=== PATIENT | male | born 1950 | race Caucasian/White ===

== ENCOUNTER 2018-08-07 11:40 | Outpatient (RCR) | payer MEDICARE, OTHER, SELFPAY | END 2018-08-08 11:53 | LOC: PHYS 11:40 | PROVIDERS: Family Provider Family Medicine; PCP Family Medicine; Visit Provider Family Medicine | DX: G56.03 Carpal tunnel syndrome, bilateral upper limbs (principal); M25.531 Pain in right wrist; M25.532 Pain in left wrist; R20.2 Paresthesia of skin | CPT/HCPCS: 95909 ==

== ENCOUNTER → 2018-12-22 07:11 | Outpatient (CLI) | payer MEDICARE, OTHER, SELFPAY ==
[2018-12-22 08:14] LABS: Add Manual Diff / Slide Review NO; Basophils Absolute Auto 100 /uL (0-100); Basophils Percent Auto 1.5 % (0-2); Eosinophils Absolute Auto 100 /uL (0-450); Hematocrit 41.6 % (41-53); Lymphocytes Absolute Auto 1700 /uL (1100-4500); Lymphocytes Percent Auto 29.4 % (25-40); Mean Corpuscular HGB Conc 33.7 % (30-36); Mean Corpuscular Hemoglobin 30.4 PG (26-34); Mean Corpuscular Volume 90.3 fL (80-100); Monocytes Absolute Auto 500 /uL (0-900); Monocytes Percent Auto 8.4 % (3-14); Neutrophils Absolute Auto 3400 /uL (1500-7000); Neutrophils Percent Auto 58.7 % (50-75); Platelet Count 260 X10^3/uL (150-400); Red Cell Distribution Width 13.2 % (11.6-14.8); White Blood Cell Count 5.8 X10^3/uL (4.5-11.0)
[2018-12-22 08:48] LABS: Alanine Aminotransferase 26 IU/L (21-72); Albumin 4.4 g/dL (3.5-5.0); Albumin Globulin Ratio 1.6 (1.0-2.8); Alkaline Phosphatase 41 U/L (38-126); Aspartate Aminotransferase 30 IU/L (17-59); BUN Creatinine Ratio 19.4 (6-22); Bilirubin Total 0.4 mg/dL (0.2-1.3); Blood Urea Nitrogen 33 mg/dL (9-20); Calcium 9.6 mg/dL (8.4-10.2); Carbon Dioxide 29 mmol/L (22-32); Chloride 101 mmol/L (98-107); Globulin 2.7 g/dL (1.7-4.1); Glucose 180 mg/dL (80-110); HEMOLYSIS < 15 (0-50); Sodium 137 mmol/L (137-145); Total Protein 7.1 g/dL (6.3-8.2)
[2018-12-22 08:49] LABS: Hemoglobin A1C% w Est Avg Glu 8.6 % (4.0-6.0)
[2018-12-22 09:14] LABS: Thyroid Stimulating Hormone 4.29 uIU/mL (0.47-4.68)
[2018-12-22 09:58] LABS: Prostate Specific Antigen Scrn < 0.064 ng/mL (0.1-4.0)
== END ==
PROVIDERS: PCP Family Medicine; Visit Provider Family Medicine
DX: E10.9 Type 1 diabetes mellitus without complications (principal); E78.1 Pure hyperglyceridemia; N18.2 Chronic kidney disease, stage 2 (mild); N52.31 Erectile dysfunction following radical prostatectomy
CPT/HCPCS: 36415; 80053; 83036; 84403; 84443; 85025; G0103

== ENCOUNTER → 2019-06-15 07:56 | Outpatient (CLI) | payer MEDICARE, OTHER, SELFPAY ==
[2019-06-15 12:57] LABS: BUN Creatinine Ratio 19.5 (6-22); Blood Urea Nitrogen 37 mg/dL (9-20); Calcium 9.5 mg/dL (8.4-10.2); Carbon Dioxide 27 mmol/L (22-32); Chloride 101 mmol/L (98-107); Cholesterol 203 mg/dL (140-199); Estimated Glomerular Filt Rate 35.2 mL/min (>60); Glucose 241 mg/dL (80-110); HDL Cholesterol 30 mg/dL (40-60); HEMOLYSIS 16 (0-50); LDL Cholesterol Calculated 97 mg/dL (<100); Potassium 5.3 mmol/L (3.4-5.1); Sodium 138 mmol/L (137-145); Triglycerides 379 mg/dL (35-150)
== END ==
PROVIDERS: PCP Family Medicine; Visit Provider Family Medicine
DX: E10.9 Type 1 diabetes mellitus without complications (principal)
CPT/HCPCS: 36415; 80048; 80061; 83036

== ENCOUNTER → 2019-07-15 10:22 | Outpatient (CLI) | payer MEDICARE, OTHER, SELFPAY ==
--- NOTE | 2019-07-15 12:10 | DIET.PN ---
Dietary Note DIABETES w/ CKD Nutrition Initial Assessment:? ASSESS:?? Mr Ferrari is a 68 yom w/ long standing hx (45 yrs) of Type 1 diabetes with a new DX of CKD stage 3. He presents today with his who is very concerned and eager to make any changes necessary. He states he was previously under the care of Dr. Santizo (etcher electrolytic [facility]) who states he has insulin dependent T2DM. He has an appt with Dr. Durant (nephrology) and Dr. Dent (endocrinology) next month. He is currently taking lantus am/pm and humalog SSI. He states he generally takes 6-10 units of meal time insulin (depending on correction factor) before or after his meal, but does not account for carbs to be consumed. He states he generally has elevated FBG >200, but often has ranges between 100-130 in the afternoon. During this assessment his blood sugar began to drop reaching 80 mg/dl which appeared symptomatic for this patient. Recommended pt get a snack from the cafeteria which he returns with an orange juice. He admits he is concerned with dietary changes, specifically protein limitations, but is aware of the seriousness of his diagnosis. He currently consumes several cups of coffee throughout the day and drinks 2 glasses of wine each night. He complains of chronic fatigue. ??? LABS: Per pt report:? (06/15/19) A1c: 9.0 H eGFR: 35.2 L K: 5.3 H Na: 138 Cr: 1.9 H Chol: 203 T LDL: 97 HDL: 30 ? MEDS:??lantus: 15 u a.m. 16 u p.m. novolog: SSI 6-10 u ? DIET: Per 24-hour recall:? B: 2 eggs, ham, oatmeal L: varies D: chicken, starch, veg ? Weight: 200 lb Height: 72 in BMI: 27 ? Exercise:? n/a NUTRITION DX 1. Altered Nutrition related labs related to impaired glucose metabolism, lack of previous exposure to accurate nutrition information as evidenced by pt report, dx of diabetes, CKD stage 3, previous diet high in refined carbohydrates.? EER: 2200 michael, 60-70 g pro, 2000 mg Na, 2000 mg K INTERVENTION(s): 1. Discussed pathophysiology of diabetes. Reviewed A1c and its correlation to blood glucose numbers. Discussed recommended BG ranges. 2. Discussed importance of self-monitoring, how often, and when to check. Recommend pt check before and 2 hr PP meals to discuss changes to SSI. Discussed importance of CHO counting in assessing insulin needs. 3. Reviewed hyper/hypoglycemia and treatment. Discussed the rule of 15 and specifically instructed on when to choose simple sugar ( <70) vs when to get a regular snack. Advised against orange juice as this is high in potassium. 4. Discussed impact of nutrition/diet on blood sugar control.? Discussed fed versus non-fed state.?? 5. Discussed the effect of carbohydrates/protein/fat on blood sugar control.? Stressed importance of consistent carbohydrate intake at each meal and provided instructions for recommended servings/portions of carbohydrates/protein per meal. Provided pt with educational material. 6. Reviewed carbohydrate counting and measuring carbohydrate content via serving sizes and reading nutrition labels.? Provided handouts.?? 7. Discussed the stages of kidney disease and the effects of protein, potassium, and sodium on blood pressure and kidney function. 8. Provided detailed outline of patient nutrient needs including specific protein, potassium, sodium and fluid goals. Provided list of low, med, and high potassium foods as well of servings of animal vs plant based proteins. 9. Stressed importance of meal timing and not going >4-5 hours between meals. 10. Discussed the effects of caffeine and alcohol on kidney function. 11. Discussed healthy weight loss, BG and BP control through diet and exercise to increase lean muscle mass.? MONITOR/EVALUATE: Anticipate good compliance.? Pt will call to schedule follow up.
== END ==
PROVIDERS: PCP Family Medicine; Visit Provider Family Medicine
DX: E10.22 Type 1 diabetes mellitus with diabetic chronic kidney disease (principal); N18.3 Chronic kidney disease, stage 3 (moderate); Z79.4 Long term (current) use of insulin; Z71.3 Dietary counseling and surveillance; Z68.27 Body mass index [BMI] 27.0-27.9, adult
CPT/HCPCS: 97802

== ENCOUNTER → 2019-08-06 13:56 | Outpatient (CLI) | payer MEDICARE, OTHER, SELFPAY ==
[2019-08-06 15:36] LABS: Creatinine Urine Random 110.3 mg/dL
[2019-08-06 15:37] LABS: Albumin 3.9 g/dL (3.5-5.0); BUN Creatinine Ratio 16.9 (6-22); Blood Urea Nitrogen 22 mg/dL (9-20); Calcium 9.2 mg/dL (8.4-10.2); Carbon Dioxide 29 mmol/L (22-32); Chloride 99 mmol/L (98-107); Estimated Glomerular Filt Rate 54.6 mL/min (>60); Glucose 224 mg/dL (80-110); HEMOLYSIS < 15 (0-50); Potassium 4.7 mmol/L (3.4-5.1); Sodium 136 mmol/L (137-145)
[2019-08-06 16:36] LABS: Microalbumi Creatinin Ratio Ur 591.1 ug/mg CR (<30); Microalbumin Urine Random 65.2 mg/dL (0-1.6)
== END ==
PROVIDERS: PCP Family Medicine; Visit Provider Family Medicine
DX: R80.9 Proteinuria, unspecified (principal); N52.31 Erectile dysfunction following radical prostatectomy
CPT/HCPCS: 36415; 80069; 82043; 82570; 84403

== ENCOUNTER → 2019-09-02 09:51 | Outpatient (CLI) | payer MEDICARE, OTHER, SELFPAY ==
--- NOTE | 2019-09-02 | DI.US.S_ITS ---
PROCEDURE: US RENAL COMPLETE INDICATIONS: CKD STAGE 3 TECHNIQUE: Real-time scanning was performed of the kidneys and bladder, with image documentation. COMPARISON: None. FINDINGS: Kidneys: Kidneys are normal in size. Right kidney measures 10.5 cm long; left kidney measures 11.9 cm long. Right renal cortical thickness is 1.6 cm; left renal cortical thickness is 1.4 cm. Renal cortical echotexture is normal. No hydronephrosis or nephrolithiasis. There is a lobulated 2.3 x 2.3 x 2.1 cm left mid kidney medial masslike structure, inadequately visualized by ultrasound.. Bladder: Pre-void bladder volume is 128 mL. Post-void residual is 0 mL. Pre-void images demonstrate no intraluminal masses or stones. On pre-void images, right but not the left ureteral jets are noted with color Doppler interrogation. (Of note, ureteral jets may not be detectable in up to 25% of cases due to insufficient differences in specific gravity between ureteral and bladder urine). Miscellaneous: No free pelvic fluid. IMPRESSION: At the left kidney middle third medially positioned is a 2.3 cm masslike structure that is not fully evaluated by ultrasound for determining whether this could represent an underlying neoplasm. Therefore this structure should be followed by sequential ultrasound to confirm stability of appearance over time, versus performing without and with contrast CT or MR scanning for more accurate characterization. Urology consultation is anticipated. Dictated by: Richard Graves M.D. on 09/02/2019 at 11:04 Approved by: Richard Graves M.D. on 09/02/2019 at 11:30
== END ==
PROVIDERS: PCP Family Medicine; Visit Provider Internal Medicine Nephrology
DX: N18.3 Chronic kidney disease, stage 3 (moderate) (principal)
CPT/HCPCS: 76770

== ENCOUNTER → 2019-09-24 09:02 | Outpatient (CLI) | payer MEDICARE, OTHER, SELFPAY ==
--- NOTE | 2019-09-24 | DI.MRI.S_ITS ---
PROCEDURE: MR ABDOMEN WO/W CON INDICATIONS: Abnormal radiologic findings on diagnostic imaging TECHNIQUE: Coronal HASTE through abdomen and pelvis; axial 2D FLASH in- and [id number] (with and without fat saturation), and breath-hold T2 FSE from the hepatic dome to the bottom of the kidneys. Coronal HASTE MR urogram of kidneys and bladder. Dynamic coronal VIBE during IV gadolinium administration; postgadolinium axial VIBE or 2D FLASH with fat saturation from the hepatic dome through the kidneys. COMPARISON: [facility], , RENAL COMPLETE, 09/02/2019, 10:08. FINDINGS: Image quality: Excellent. Genitourinary system: The kidneys are normal in size and cortical thickness. No cyst or solid mass. No hydronephrosis. There is normal and symmetric uptake and excretion of IV contrast. No restricted diffusion. No perinephric fluid or inflammation. Other solid organs: The liver is normal in size, contour, and signal subcentimeter cyst in the left hepatic lobe. No other liver mass. The biliary system is nondilated. The gallbladder is normal without stones. The pancreas is mildly atrophic. The pancreatic duct is normal caliber demonstrating classic ductal anatomy. No adrenal nodules. Normal spleen. Splenule anterior to the hilum. Nodes and vessels: Abdominal aorta and inferior vena cava are normal caliber. Moderate atheromatous change of the aorta. No retroperitoneal or visible mesenteric adenopathy. Bowel and peritoneum: The stomach and small bowel loops have a normal MR appearance. Lung bases: No basilar effusions. Normal heart size. Bones and soft tissues: Normal signal of the osseous structures. Tiny fat containing umbilical hernia. IMPRESSION: 1. Normal renal morphology bilaterally. Sonographic appearance of the mass is created by image plane obliquity to the normal cortex. 2. Aortic atherosclerosis. Dictated by: Anu Landaverde M.D. on 09/24/2019 at 12:05 Approved by: Anu Landaverde M.D. on 09/24/2019 at 12:16
== END ==
PROVIDERS: PCP Family Medicine; Visit Provider Internal Medicine Nephrology
DX: R93.429 Abnormal radiologic findings on diagnostic imaging of unspecified kidney (principal); I70.0 Atherosclerosis of aorta
CPT/HCPCS: 74183

== ENCOUNTER → 2019-11-06 08:57 | Outpatient (CLI) | payer MEDICARE, OTHER, SELFPAY ==
[2019-11-06 09:40] LABS: Bacteria Urine None Seen; RBC Urine None Seen (0-5/HPF); WBC Urine None Seen (0-5/HPF)
[2019-11-06 10:28] LABS: Protein (Total) Urine Random 39 mg/dL (0-12); Protein Creatinine Ratio Urine 0.33 GRAM/24H
[2019-11-06 10:28] LABS: Appearance Urine UA CLEAR; Bilirubin Urine UA NEGATIVE (NEGATIVE); Color Urine UA YELLOW; Glucose Urine UA 2+ g/dL (Negative); Ketones Urine UA NEGATIVE (NEGATIVE); Leukocyte Esterase Urine UA NEGATIVE (NEGATIVE); Nitrite Urine UA NEGATIVE (Negative); Occult Blood Urine UA NEGATIVE (Negative); Protein Urine UA TRACE (Negative); Urobilinogen Urine UA 0.2 E.U./dL (0.2); pH Urine UA 6.5 (4.5-8.0)
[2019-11-06 10:29] LABS: Culture Indicated Urine Cult Not Indicated; Urine Comments Microscopic Normal
[2019-11-06 10:43] LABS: Albumin 4.2 g/dL (3.5-5.0); BUN Creatinine Ratio 13.5 (6-22); Blood Urea Nitrogen 25 mg/dL (9-20); Calcium 9.4 mg/dL (8.4-10.2); Carbon Dioxide 27 mmol/L (22-32); Chloride 102 mmol/L (98-107); Estimated Glomerular Filt Rate 36.2 mL/min (>60); Glucose 173 mg/dL (80-110); HEMOLYSIS < 15 (0-50); Phosphorous 3.8 mg/dL (2.3-3.7); Potassium 4.7 mmol/L (3.4-5.1); Sodium 137 mmol/L (137-145); Triglycerides 214 mg/dL (35-150)
[2019-11-07 08:09] LABS: Parathyroid Hormone Int 46 pg/mL (15-65)
== END ==
PROVIDERS: PCP Family Medicine; Referring Provider Internal Medicine Nephrology; Visit Provider Internal Medicine Nephrology
DX: E78.1 Pure hyperglyceridemia (principal)
CPT/HCPCS: 36415; 80069; 81001; 82570; 83970; 84156; 84478

== ENCOUNTER → 2020-02-09 12:43 | Outpatient (CLI) | payer MEDICARE, OTHER, SELFPAY ==
[2020-02-09 15:39] LABS: Albumin 4.3 g/dL (3.5-5.0); BUN Creatinine Ratio 21.2 (6-22); Blood Urea Nitrogen 35 mg/dL (9-20); Calcium 9.8 mg/dL (8.4-10.2); Carbon Dioxide 26 mmol/L (22-32); Chloride 104 mmol/L (98-107); Estimated Glomerular Filt Rate 41.3 mL/min (>60); Glucose 154 mg/dL (80-110); HEMOLYSIS < 15 (0-50); Phosphorous 4.3 mg/dL (2.3-3.7); Potassium 4.7 mmol/L (3.4-5.1); Sodium 136 mmol/L (137-145)
== END ==
PROVIDERS: PCP Family Medicine; Referring Provider Internal Medicine Nephrology; Visit Provider Internal Medicine Nephrology
DX: N18.3 Chronic kidney disease, stage 3 (moderate) (principal)
CPT/HCPCS: 36415; 80069

== ENCOUNTER → 2020-02-22 15:17 | Outpatient (CLI) | payer MEDICARE, OTHER, SELFPAY ==
[2020-02-22 17:42] LABS: Add Manual Diff / Slide Review NO; Basophils Absolute Auto 100 /uL (0-100); Basophils Percent Auto 1.4 % (0-2); Eosinophils Absolute Auto 400 /uL (0-450); Eosinophils Percent Auto 5.9 % (2-4); Hematocrit 34.6 % (41-53); Hemoglobin 12.1 g/dL (13.5-17.5); Lymphocytes Absolute Auto 1700 /uL (1100-4500); Lymphocytes Percent Auto 26.2 % (25-40); Mean Corpuscular HGB Conc 35.1 % (30-36); Mean Corpuscular Hemoglobin 31.6 PG (26-34); Mean Corpuscular Volume 89.9 fL (80-100); Monocytes Absolute Auto 500 /uL (0-900); Monocytes Percent Auto 7.9 % (3-14); Neutrophils Absolute Auto 3700 /uL (1500-7000); Neutrophils Percent Auto 58.6 % (50-75); Platelet Count 234 X10^3/uL (150-400); Red Blood Cell Count 3.85 X10^6/uL (4.5-5.9); Red Cell Distribution Width 13.2 % (11.6-14.8); White Blood Cell Count 6.3 X10^3/uL (4.5-11.0)
[2020-02-22 18:13] LABS: Hemoglobin A1C% w Est Avg Glu 8.8 % (4.0-6.0)
== END ==
PROVIDERS: PCP Family Medicine; Referring Provider Internal Medicine Nephrology; Visit Provider Internal Medicine Nephrology
DX: N18.3 Chronic kidney disease, stage 3 (moderate) (principal); E11.8 Type 2 diabetes mellitus with unspecified complications
CPT/HCPCS: 36415; 83036; 85025

== ENCOUNTER → 2020-03-07 14:04 | Outpatient (CLI) | payer MEDICARE, OTHER, SELFPAY ==
--- NOTE | 2020-03-07 14:06 | DI.RAD.S_ITS ---
PROCEDURE: XR LUMBAR SPINE MIN 4V INDICATIONS: leg spasms weakness. R/O spinal involvement. TECHNIQUE: 5 views of the lumbar spine were acquired. COMPARISON: None. FINDINGS: Bones: 5 nonrib-bearing vertebrae are present. There is normal bony alignment. No vertebral body compression fractures. No suspicious bony lesions. There is a [id number] degree of degenerative disc disease along the lumbosacral spine most prominent at L3-L4 and L5-S1. Facet osteoarthritis is moderately severe bilaterally from L3 through S1 and most pronounced at L5-S1. Soft tissues: Overlying bowel gas pattern is normal. No suspicious soft tissue calcifications. Oblique images: No pars defects. IMPRESSION: No trauma found. [id number]-[id number] degenerative osteoarthritis at the facet joints and discs over the LS spine and most pronounced from L3 inferiorly. Spinal and foraminal stenosis likely is present at L 4-5 and L5-S1. Dictated by: Richard Graves M.D. on 03/07/2020 at 15:38 Approved by: Richard Graves M.D. on 03/07/2020 at 15:40
== END ==
PROVIDERS: PCP Family Medicine; Referring Provider Family Medicine; Visit Provider Family Medicine
DX: M62.838 Other muscle spasm (principal); R29.898 Other symptoms and signs involving the musculoskeletal system; M47.816 Spondylosis without myelopathy or radiculopathy, lumbar region
CPT/HCPCS: 72110

== ENCOUNTER → 2020-03-15 15:23 | Outpatient (CLI) | payer MEDICARE, OTHER, SELFPAY ==
[2020-03-15 15:48] LABS: Add Manual Diff / Slide Review NO; Basophils Absolute Auto 100 /uL (0-100); Basophils Percent Auto 1.2 % (0-2); Eosinophils Absolute Auto 200 /uL (0-450); Eosinophils Percent Auto 2.4 % (2-4); Hematocrit 33.6 % (41-53); Hemoglobin 11.6 g/dL (13.5-17.5); Lymphocytes Absolute Auto 1600 /uL (1100-4500); Lymphocytes Percent Auto 25.3 % (25-40); Mean Corpuscular HGB Conc 34.5 % (30-36); Mean Corpuscular Volume 89.8 fL (80-100); Monocytes Absolute Auto 500 /uL (0-900); Monocytes Percent Auto 8.3 % (3-14); Neutrophils Absolute Auto 4000 /uL (1500-7000); Neutrophils Percent Auto 62.8 % (50-75); Platelet Count 247 X10^3/uL (150-400); Red Blood Cell Count 3.74 X10^6/uL (4.5-5.9); Red Cell Distribution Width 12.9 % (11.6-14.8); White Blood Cell Count 6.4 X10^3/uL (4.5-11.0)
[2020-03-15 16:32] LABS: Albumin 3.9 g/dL (3.5-5.0); BUN Creatinine Ratio 21.3 (6-22); Blood Urea Nitrogen 43 mg/dL (9-20); Calcium 9.2 mg/dL (8.4-10.2); Carbon Dioxide 22 mmol/L (22-32); Chloride 102 mmol/L (98-107); Estimated Glomerular Filt Rate 32.7 mL/min (>60); Glucose 172 mg/dL (80-110); HEMOLYSIS < 15 (0-50); Potassium 4.1 mmol/L (3.4-5.1); Sodium 132 mmol/L (137-145)
== END ==
PROVIDERS: PCP Family Medicine; Referring Provider Internal Medicine Nephrology; Visit Provider Internal Medicine Nephrology
DX: N18.3 Chronic kidney disease, stage 3 (moderate) (principal)
CPT/HCPCS: 36415; 80069; 85025

== ENCOUNTER → 2020-03-24 09:13 | Outpatient (CLI) | payer MEDICARE, OTHER, SELFPAY ==
--- NOTE | 2020-03-24 09:15 | DI.MRI.S_ITS ---
PROCEDURE: MR LUMBAR SPINE WO CON INDICATIONS: leg weakness and spasms, r/o spinal involvemenet TECHNIQUE: Noncontrast sagittal T1 spin echo and T2 fast echo, sagittal STIR, axial T1 and T2 fast spin echo through the lumbar spine. In cases with scoliosis, additional coronal T2 fast spin echo may be performed. COMPARISON: [facility], MR, MR ABDOMEN WO/W CON, 09/24/2019, 9:43. [facility], CR, XR LUMBAR SPINE MIN 4V, 03/07/2020, 13:15. FINDINGS: Image quality: Diagnostic, with note made of motion artifact. Alignment and Curvature: There is minimal retrolisthesis seen at the L2-3, L3-4, and L4-5 levels. Bone Marrow: Marrow is of normal overall signal. No acute vertebral body compression fractures. Spinal Cord: Conus medullaris terminates at the L1 level. Visualized cord demonstrates normal signal and size. Paraspinous Soft Tissues: No paravertebral masses. T12-L1: Normal appearance. L1-L2: The disc height and disk signal are well-preserved. Mild generalized disc bulge is seen. Mild bilateral neural foraminal narrowing is seen, right worse than left. No significant central canal narrowing is seen. L2-L3: The disc height is well-preserved. Loss of disc signal is seen at this level. Moderate disc bulge is seen, which is eccentric to the right. There is a right foraminal disc protrusion, as on series 5, image 20. Moderate bilateral neural foraminal narrowing is seen. Mild to moderate central canal narrowing is seen. L3-L4: Moderate loss of disc height is seen. Loss of disc signal is seen. Moderate disc bulge is seen, which is eccentric to the left. There is a mild central disc protrusion. Mild to moderate facet hypertrophy is seen. There is moderate to severe left-sided and at least moderate right-sided neural foraminal narrowing seen. There is a degree of compression seen upon the exiting left L3 nerve root. Mild central canal narrowing is seen. L4-L5: The disc height is well-preserved. Loss of disc signal is seen at this level. Mild to moderate disc bulge is seen, with a mild central disc protrusion. There is moderate right-sided and [id number] left-sided neural foraminal narrowing seen. There is at least moderate left-sided and moderate to severe right-sided neural foraminal narrowing seen. There is a degree of compression seen upon the exiting nerve roots. Mild to moderate central canal narrowing is seen. L5-S1: Mild loss of disc height is seen. Loss of disc signal is seen. Mild disc bulge is seen, which is eccentric to the left. There is moderate right-sided and mild left-sided neural foraminal narrowing seen. There is moderate left-sided and at least moderate right-sided neural foraminal narrowing seen. Mild central canal narrowing is seen. IMPRESSION: Multiple levels of lumbar spine degenerative change are seen, which are overall most prominent at the L4-5 level. Dictated by: Stanford Mcgregor M.D. on 03/24/2020 at 10:01 Approved by: Stanford Mcgregor M.D. on 03/24/2020 at 10:05
== END ==
PROVIDERS: PCP Family Medicine; Referring Provider Family Medicine; Visit Provider Family Medicine
DX: M47.816 Spondylosis without myelopathy or radiculopathy, lumbar region (principal); M47.817 Spondylosis without myelopathy or radiculopathy, lumbosacral region; R29.898 Other symptoms and signs involving the musculoskeletal system; M62.838 Other muscle spasm
CPT/HCPCS: 72148

== ENCOUNTER → 2020-03-31 16:26 | Outpatient (CLI) | payer MEDICARE, OTHER, SELFPAY ==
[2020-03-31 17:33] LABS: Albumin 4.1 g/dL (3.5-5.0); BUN Creatinine Ratio 20.6 (6-22); Blood Urea Nitrogen 42 mg/dL (9-20); Calcium 9.8 mg/dL (8.4-10.2); Carbon Dioxide 26 mmol/L (22-32); Chloride 101 mmol/L (98-107); Estimated Glomerular Filt Rate 32.4 mL/min (>60); Glucose 145 mg/dL (80-110); HEMOLYSIS < 15 (0-50); Phosphorous 3.5 mg/dL (2.3-3.7); Potassium 4.7 mmol/L (3.4-5.1); Sodium 134 mmol/L (137-145)
== END ==
PROVIDERS: PCP Family Medicine; Referring Provider Family Medicine; Visit Provider Internal Medicine Nephrology
DX: N18.3 Chronic kidney disease, stage 3 (moderate) (principal)
CPT/HCPCS: 36415; 80069

== ENCOUNTER → 2020-05-03 13:51 | Outpatient (CLI) | payer MEDICARE, OTHER, SELFPAY ==
[2020-05-03 14:00] LABS: Bacteria Urine None Seen; RBC Urine None Seen (0-5/HPF)
[2020-05-03 15:44] LABS: Appearance Urine UA CLEAR; Bilirubin Urine UA NEGATIVE (NEGATIVE); Color Urine UA YELLOW; Glucose Urine UA NEGATIVE (Negative); Ketones Urine UA NEGATIVE (NEGATIVE); Leukocyte Esterase Urine UA NEGATIVE (NEGATIVE); Nitrite Urine UA NEGATIVE (Negative); Occult Blood Urine UA NEGATIVE (Negative); Protein Urine UA TRACE (Negative); Urobilinogen Urine UA 0.2 E.U./dL (0.2)
[2020-05-03 15:45] LABS: Albumin 4.1 g/dL (3.5-5.0); BUN Creatinine Ratio 23.3 (6-22); Blood Urea Nitrogen 45 mg/dL (9-20); Calcium 9.4 mg/dL (8.4-10.2); Carbon Dioxide 29 mmol/L (22-32); Chloride 102 mmol/L (98-107); Estimated Glomerular Filt Rate 34.5 mL/min (>60); Glucose 209 mg/dL (80-110); HEMOLYSIS < 15 (0-50); Phosphorous 3.8 mg/dL (2.3-3.7); Sodium 135 mmol/L (137-145)
[2020-05-03 15:53] LABS: Potassium 5.4 mmol/L (3.4-5.1)
[2020-05-03 15:58] LABS: Culture Indicated Urine Cult Not Indicated; Hyaline Casts Urine 1-5/LPF; Squamous Epithelial Cell Urine None Seen (0-5/HPF); WBC Urine 0-1/HPF (0-5/HPF)
[2020-05-03 18:07] LABS: Creatinine Urine Random 143.6 mg/dL
[2020-05-03 18:10] LABS: Microalbumi Creatinin Ratio Ur 60.5 ug/mg CR (<30); Microalbumin Urine Random 8.7 mg/dL (0-1.6)
== END ==
PROVIDERS: PCP Family Medicine; Referring Provider Internal Medicine Nephrology; Visit Provider Internal Medicine Nephrology
DX: N18.3 Chronic kidney disease, stage 3 (moderate) (principal)
CPT/HCPCS: 36415; 80069; 81001; 82043; 82570

== ENCOUNTER → 2020-05-17 08:51 | Outpatient (CLI) | payer MEDICARE, OTHER, SELFPAY ==
[2020-05-17 10:18] LABS: HEMOLYSIS < 15 (0-50); Iron 96 ug/dL (49-181)
[2020-05-17 10:30] LABS: Percent Iron Saturation 28 % (20-50); Total Iron Binding Capacity 342 ug/dL (261-462); Transferrin 271 mg/dL (206-381)
[2020-05-17 10:49] LABS: Cortisol AM (Before 10AM) 16.3 ug/dL (4.46-22.7)
[2020-05-17 10:51] LABS: TSH w/ Reflex to FT4 4.49 uIU/mL (0.47-4.68)
[2020-05-17 10:54] LABS: Ferritin 233 ng/mL (18-464); Testosterone 265 ng/dL (71.8-623)
[2020-05-17 11:24] LABS: Folate > 20.0 ng/mL (2.76-20.0); Vitamin B12 650 pg/mL (239-931)
== END ==
PROVIDERS: PCP Family Medicine; Referring Provider Family Medicine; Visit Provider Family Medicine
DX: D64.9 Anemia, unspecified (principal); E11.22 Type 2 diabetes mellitus with diabetic chronic kidney disease; N18.3 Chronic kidney disease, stage 3 (moderate); R53.83 Other fatigue
CPT/HCPCS: 36415; 82533; 82607; 82728; 82746; 83540; 83550; 84403; 84443

== ENCOUNTER → 2020-06-22 10:52 | Outpatient (CLI) | payer MEDICARE, OTHER, SELFPAY ==
[2020-06-22 12:41] LABS: Hemoglobin A1C% w Est Avg Glu 8.9 % (4.0-6.0)
[2020-06-22 13:10] LABS: BUN Creatinine Ratio 27.5 (6-22); Blood Urea Nitrogen 47 mg/dL (9-20); Calcium 9.1 mg/dL (8.4-10.2); Carbon Dioxide 26 mmol/L (22-32); Chloride 100 mmol/L (98-107); Estimated Glomerular Filt Rate 39.7 mL/min (>60); Glucose 259 mg/dL (80-110); HEMOLYSIS < 15 (0-50); Phosphorous 3.3 mg/dL (2.3-3.7); Potassium 5.1 mmol/L (3.4-5.1); Sodium 133 mmol/L (137-145)
[2020-06-23 08:12] LABS: Fructosamine 364 umol/L (0-285)
== END ==
PROVIDERS: PCP Family Medicine; Referring Provider Internal Medicine Nephrology; Visit Provider Internal Medicine Nephrology
DX: N18.30 Chronic kidney disease, stage 3 unspecified (principal); E11.21 Type 2 diabetes mellitus with diabetic nephropathy; N18.32 Chronic kidney disease, stage 3b; Z97.4 Presence of external hearing-aid
CPT/HCPCS: 36415; 80069; 82985; 83036

== ENCOUNTER → 2020-07-20 14:21 | Outpatient (CLI) | payer MEDICARE, OTHER, SELFPAY ==
[2020-07-20 14:47] LABS: Bacteria Urine None Seen; RBC Urine None Seen (0-5/HPF)
[2020-07-20 15:02] LABS: Appearance Urine UA CLEAR; Bilirubin Urine UA NEGATIVE (NEGATIVE); Color Urine UA YELLOW; Glucose Urine UA NEGATIVE (Negative); Ketones Urine UA TRACE (NEGATIVE); Leukocyte Esterase Urine UA NEGATIVE (NEGATIVE); Nitrite Urine UA NEGATIVE (Negative); Occult Blood Urine UA NEGATIVE (Negative); Protein Urine UA NEGATIVE (Negative); Urobilinogen Urine UA 0.2 E.U./dL (0.2)
[2020-07-20 15:10] LABS: Culture Indicated Urine Cult Not Indicated; Mucus Urine 1+ (Negative); Squamous Epithelial Cell Urine 0-1 /HPF (0-5/HPF); WBC Urine 0-1/HPF (0-5/HPF)
[2020-07-20 15:17] LABS: Creatinine Urine Random 250.5 mg/dL
[2020-07-20 15:18] LABS: BUN Creatinine Ratio 22.1 (6-22); Blood Urea Nitrogen 49 mg/dL (9-20); Calcium 9.2 mg/dL (8.4-10.2); Carbon Dioxide 26 mmol/L (22-32); Chloride 104 mmol/L (98-107); Estimated Glomerular Filt Rate 29.3 mL/min (>60); Glucose 144 mg/dL (80-110); HEMOLYSIS < 15 (0-50); Phosphorous 3.9 mg/dL (2.3-3.7); Potassium 4.7 mmol/L (3.4-5.1); Sodium 135 mmol/L (137-145)
[2020-07-20 15:22] LABS: Microalbumi Creatinin Ratio Ur 18.7 ug/mg CR (<30); Microalbumin Urine Random 4.7 mg/dL (0-1.6)
== END ==
PROVIDERS: PCP Family Medicine; Referring Provider Internal Medicine Nephrology; Visit Provider Internal Medicine Nephrology
DX: N18.30 Chronic kidney disease, stage 3 unspecified (principal)
CPT/HCPCS: 36415; 80069; 81001; 82043; 82570

== ENCOUNTER → 2020-08-17 12:45 | Outpatient (CLI) | payer MEDICARE, OTHER, SELFPAY | LOC: LAB 12:47 → RAD 12:48 | PROVIDERS: PCP Family Medicine; Referring Provider Family Medicine; Visit Provider Family Medicine | DX: M25.551 Pain in right hip (principal); M16.0 Bilateral primary osteoarthritis of hip ==

== ENCOUNTER → 2020-08-17 12:48 | Outpatient (CLI) | payer MEDICARE, OTHER, SELFPAY ==
--- NOTE | 2020-08-17 12:54 | DI.RAD.S_ITS ---
PROCEDURE: XR HIP W PEL IF DONE RT 2V INDICATIONS: R hip pain TECHNIQUE: AP pelvis with lateral view(s) of the right hip(s). COMPARISON: None. FINDINGS: Bones: No fracture. Lower lumbar spondylosis and facet arthropathy. Mild to moderate bilateral hip joint degeneration. Soft tissues: Numerous vascular calcifications. Bilateral presumed pelvic phleboliths. IMPRESSION: Bilateral mild to moderate hip joint degeneration If the patient's pain or other symptoms persist, consider further evaluation with MRI Dictated by: Chema Adames M.D. on 08/17/2020 at 13:36 Approved by: Chema Adames M.D. on 08/17/2020 at 13:38
[2020-08-17 16:24] LABS: BUN Creatinine Ratio 20.8 (6-22); Blood Urea Nitrogen 38 mg/dL (9-20); Calcium 9.4 mg/dL (8.4-10.2); Carbon Dioxide 28 mmol/L (22-32); Chloride 103 mmol/L (98-107); Estimated Glomerular Filt Rate 36.7 mL/min (>60); Glucose 173 mg/dL (80-110); HEMOLYSIS < 15 (0-50); Phosphorous 3.1 mg/dL (2.3-3.7); Potassium 4.9 mmol/L (3.4-5.1); Sodium 135 mmol/L (137-145)
== END ==
PROVIDERS: PCP Family Medicine; Referring Provider Internal Medicine Nephrology; Visit Provider Internal Medicine Nephrology
DX: N17.9 Acute kidney failure, unspecified (principal); M25.551 Pain in right hip
CPT/HCPCS: 36415; 73502; 80069

== ENCOUNTER → 2020-09-15 12:41 | Outpatient (CLI) | payer MEDICARE, OTHER, SELFPAY ==
[2020-09-15 13:55] LABS: Albumin 4.2 g/dL (3.5-5.0); BUN Creatinine Ratio 22.8 (6-22); Blood Urea Nitrogen 50 mg/dL (9-20); Carbon Dioxide 26 mmol/L (22-32); Chloride 101 mmol/L (98-107); Estimated Glomerular Filt Rate 29.7 mL/min (>60); Glucose 152 mg/dL (80-110); HEMOLYSIS < 15 (0-50); Potassium 4.6 mmol/L (3.4-5.1); Sodium 133 mmol/L (137-145)
== END ==
PROVIDERS: PCP Family Medicine; Referring Provider Internal Medicine Nephrology; Visit Provider Internal Medicine Nephrology
DX: N17.9 Acute kidney failure, unspecified (principal)
CPT/HCPCS: 36415; 80069

== ENCOUNTER → 2020-10-14 08:23 | Outpatient (CLI) | payer MEDICARE, OTHER, SELFPAY ==
[2020-10-14 09:55] LABS: Add Manual Diff / Slide Review NO; Basophils Absolute Auto 100 /uL (0-100); Basophils Percent Auto 1.4 % (0-2); Eosinophils Absolute Auto 200 /uL (0-450); Eosinophils Percent Auto 2.5 % (2-4); Hematocrit 32.9 % (41-53); Hemoglobin 11.3 g/dL (13.5-17.5); Lymphocytes Absolute Auto 1800 /uL (1100-4500); Lymphocytes Percent Auto 28.5 % (25-40); Mean Corpuscular HGB Conc 34.5 % (30-36); Mean Corpuscular Hemoglobin 30.8 PG (26-34); Mean Corpuscular Volume 89.5 fL (80-100); Monocytes Absolute Auto 600 /uL (0-900); Monocytes Percent Auto 10.3 % (3-14); Neutrophils Absolute Auto 3600 /uL (1500-7000); Neutrophils Percent Auto 57.3 % (50-75); Platelet Count 220 X10^3/uL (150-400); Red Blood Cell Count 3.68 X10^6/uL (4.5-5.9); Red Cell Distribution Width 12.7 % (11.6-14.8); White Blood Cell Count 6.2 X10^3/uL (4.5-11.0)
[2020-10-14 10:18] LABS: Albumin 3.8 g/dL (3.5-5.0); BUN Creatinine Ratio 26.8 (6-22); Blood Urea Nitrogen 40 mg/dL (9-20); Calcium 9.5 mg/dL (8.4-10.2); Carbon Dioxide 28 mmol/L (22-32); Chloride 105 mmol/L (98-107); Cholesterol 196 mg/dL (140-199); Estimated Glomerular Filt Rate 46.4 mL/min (>60); Glucose 226 mg/dL (80-110); HDL Cholesterol 30 mg/dL (40-60); HEMOLYSIS < 15 (0-50); Phosphorous 4.1 mg/dL (2.3-3.7); Potassium 4.8 mmol/L (3.4-5.1); Sodium 135 mmol/L (137-145); Triglycerides 443 mg/dL (35-150)
[2020-10-14 10:31] LABS: Erythrocyte Sedimentation Rate 29 MM/HR (0-15)
[2020-10-14 15:16] LABS: Creatine Kinase 78 U/L (55-170)
== END ==
PROVIDERS: PCP Family Medicine; Referring Provider Internal Medicine Nephrology; Visit Provider Internal Medicine Nephrology
DX: N17.9 Acute kidney failure, unspecified (principal); E78.5 Hyperlipidemia, unspecified; M79.10 Myalgia, unspecified site
CPT/HCPCS: 36415; 80061; 80069; 82550; 85025; 85651

== ENCOUNTER → 2020-11-08 08:10 | Outpatient (CLI) | payer MEDICARE, OTHER, SELFPAY ==
[2020-11-08 09:44] LABS: Erythrocyte Sedimentation Rate 30 MM/HR (0-15)
[2020-11-08 10:03] LABS: Alanine Aminotransferase 33 IU/L (<50); Albumin 3.9 g/dL (3.5-5.0); Albumin Globulin Ratio 1.6 (1.0-2.8); Alkaline Phosphatase 53 U/L (38-126); Aspartate Aminotransferase 31 IU/L (17-59); Bilirubin Total 0.2 mg/dL (0.2-1.3); Blood Urea Nitrogen 34 mg/dL (9-20); C-Reactive Protein Quant < 0.5 mg/dL (<1.0); Calcium 9.3 mg/dL (8.4-10.2); Carbon Dioxide 28 mmol/L (22-32); Chloride 103 mmol/L (98-107); Estimated Glomerular Filt Rate 56.3 mL/min (>60); Globulin 2.4 g/dL (1.7-4.1); Glucose 217 mg/dL (80-110); HEMOLYSIS < 15 (0-50); Potassium 4.6 mmol/L (3.4-5.1); Rheumatoid Factor < 8.6 IU/mL (<12.0); Sodium 135 mmol/L (137-145); Total Protein 6.3 g/dL (6.3-8.2)
[2020-11-09 23:07] LABS: Aldolase 4.8 U/L (3.3-10.3)
[2020-11-10 14:08] LABS: ANA Screen, IFA Negative (.)
[2020-11-10 20:15] LABS: CCP Antibodies IgG/IgA 3 units (0-19)
[2020-11-11 11:36] LABS: Acetylcholine Rec Blocking AB 7 % (0-25)
[2020-11-11 12:09] LABS: Acetylcholine Receptor Bind AB <0.03 nmol/L (0.00-0.24)
== END ==
PROVIDERS: PCP Family Medicine; Referring Provider Internal Medicine Nephrology; Visit Provider Internal Medicine Nephrology
DX: R29.898 Other symptoms and signs involving the musculoskeletal system (principal); M26.69 Other specified disorders of temporomandibular joint; N18.31 Chronic kidney disease, stage 3a; E10.42 Type 1 diabetes mellitus with diabetic polyneuropathy; N17.9 Acute kidney failure, unspecified
CPT/HCPCS: 36415; 80053; 82085; 83519; 85651; 86038; 86140; 86200; 86430

== ENCOUNTER → 2020-12-01 09:28 | Outpatient (CLI) | payer MEDICARE, OTHER, SELFPAY ==
--- NOTE | 2020-12-01 | DI.MRI.S_ITS ---
PROCEDURE: MR FEMUR RT WO/W CON INDICATIONS: personal history of pyliomyelitis TECHNIQUE: Noncontrast coronal T1 spin echo and STIR, sagittal T1 spin echo with fat saturation and STIR, axial T1 spin echo and T2 fast spin echo with fat saturation. After the administration of contrast, axial/sagittal/coronal T1 spin echo with fat saturation through the right thigh. COMPARISON: None. FINDINGS: Image quality: Excellent. Bones: The visualized bone marrow demonstrates normal signal on all sequences. Mild right hip joint osteoarthritis is seen, no evidence of avascular necrosis of femoral head. The overlying cortex appears intact. No abnormal intraosseous enhancement. Soft tissues: No soft tissue masses are visualized. The scanned muscles demonstrate normal overall bulk and internal signal. Subcutaneous tissues appear normal as well. No abnormal soft tissue enhancement. IMPRESSION: 1. No marrow edema. No abnormal intraosseous enhancement or suspicious intraosseous lesion. No fracture or dislocation. Mild right hip joint osteoarthritis. No evidence of avascular necrosis of femoral head. 2. No area of abnormal soft tissue enhancement. No gross muscle or tendon signal abnormality is seen. No evidence of right-side myositis or muscle atrophy. Dictated by: Ted Vines M.D. on 12/01/2020 at 13:10 Approved by: Ted Vines M.D. on 12/01/2020 at 16:23
== END ==
PROVIDERS: PCP Family Medicine; Referring Provider Psychiatry & Neurology Neurology; Visit Provider Psychiatry & Neurology Neurology
DX: Z86.12 Personal history of poliomyelitis (principal); R29.898 Other symptoms and signs involving the musculoskeletal system; M16.11 Unilateral primary osteoarthritis, right hip
CPT/HCPCS: 73720; A9579

== ENCOUNTER → 2020-12-06 11:13 | Outpatient (CLI) | payer MEDICARE, OTHER, SELFPAY ==
[2020-12-06 13:43] LABS: Free T4, Direct Thyroxine 0.94 ng/dL (0.78-2.19)
[2020-12-06 13:57] LABS: Thyroid Stimulating Hormone 3.95 uIU/mL (0.47-4.68)
[2020-12-08 00:44] LABS: Anti Thyroglobulin Antibody <1.0 IU/mL (0.0-0.9); Thyroid Peroxidase Antibodies <9 IU/mL (0-34)
== END ==
PROVIDERS: PCP Family Medicine; Referring Provider Family Medicine; Visit Provider Family Medicine
DX: E03.9 Hypothyroidism, unspecified (principal); R79.89 Other specified abnormal findings of blood chemistry
CPT/HCPCS: 36415; 84439; 84443; 84481; 86376; 86800

== ENCOUNTER → 2020-12-29 09:52 | Outpatient (CLI) | payer MEDICARE, OTHER, SELFPAY ==
[2020-12-29 11:20] LABS: Add Manual Diff / Slide Review NO; Basophils Absolute Auto 100 /uL (0-100); Basophils Percent Auto 1.9 % (0-2); Eosinophils Absolute Auto 200 /uL (0-450); Eosinophils Percent Auto 3.3 % (2-4); Hemoglobin 11.2 g/dL (13.5-17.5); Lymphocytes Absolute Auto 1500 /uL (1100-4500); Lymphocytes Percent Auto 29.2 % (25-40); Mean Corpuscular HGB Conc 33.9 % (30-36); Mean Corpuscular Hemoglobin 30.5 PG (26-34); Mean Corpuscular Volume 90.1 fL (80-100); Monocytes Absolute Auto 500 /uL (0-900); Monocytes Percent Auto 9.7 % (3-14); Neutrophils Absolute Auto 2800 /uL (1500-7000); Neutrophils Percent Auto 55.9 % (50-75); Platelet Count 189 X10^3/uL (150-400); Red Blood Cell Count 3.66 X10^6/uL (4.5-5.9); Red Cell Distribution Width 12.6 % (11.6-14.8); White Blood Cell Count 5.1 X10^3/uL (4.5-11.0)
[2020-12-29 11:29] LABS: Erythrocyte Sedimentation Rate 24 MM/HR (0-15)
[2020-12-29 11:31] LABS: Albumin 3.9 g/dL (3.5-5.0); BUN Creatinine Ratio 26.4 (6-22); Blood Urea Nitrogen 33 mg/dL (9-20); Calcium 9.5 mg/dL (8.4-10.2); Carbon Dioxide 25 mmol/L (22-32); Chloride 104 mmol/L (98-107); Cholesterol 171 mg/dL (140-199); Creatine Kinase 76 U/L (55-170); Estimated Glomerular Filt Rate 56.8 mL/min (>60); Glucose 113 mg/dL (80-110); HDL Cholesterol 27 mg/dL (40-60); HEMOLYSIS < 15 (0-50); LDL Cholesterol Calculated 85 mg/dL (<100); Potassium 4.6 mmol/L (3.4-5.1); Sodium 136 mmol/L (137-145); Triglycerides 296 mg/dL (35-150)
== END ==
PROVIDERS: PCP Family Medicine; Referring Provider Internal Medicine Nephrology; Visit Provider Family Medicine
DX: M79.10 Myalgia, unspecified site (principal); E78.5 Hyperlipidemia, unspecified; N17.9 Acute kidney failure, unspecified
CPT/HCPCS: 36415; 80061; 80069; 82550; 85025; 85651

== ENCOUNTER → 2021-01-18 11:05 | Outpatient (CLI) | payer MEDICARE, OTHER, SELFPAY ==
[2021-01-18 12:40] LABS: Free T4, Direct Thyroxine 1.15 ng/dL (0.78-2.19)
[2021-01-19 03:50] LABS: Free T3, Triiodothyronine Free 3.23 pg/mL (2.77-5.27)
[2021-01-22 20:32] LABS: Percent Free Testosterone 2.58 % (1.50-4.20); Testosterone Free 7.97 ng/dL (5.00-21.00); Testosterone Total 308.9 ng/dL (264.0-916.0)
== END ==
PROVIDERS: PCP Family Medicine; Referring Provider Family Medicine; Visit Provider Family Medicine
DX: E03.9 Hypothyroidism, unspecified (principal); D64.9 Anemia, unspecified; M62.81 Muscle weakness (generalized)
CPT/HCPCS: 36415; 84402; 84403; 84439; 84443; 84481

== ENCOUNTER → 2021-04-11 09:07 | Outpatient (CLI) | payer MEDICARE, OTHER, SELFPAY ==
[2021-04-11 10:26] LABS: Add Manual Diff / Slide Review NO; Basophils Absolute Auto 100 /uL (0-100); Basophils Percent Auto 1.4 % (0-2); Eosinophils Absolute Auto 200 /uL (0-450); Eosinophils Percent Auto 3.9 % (2-4); Hematocrit 34.1 % (41-53); Hemoglobin 11.5 g/dL (13.5-17.5); Lymphocytes Absolute Auto 1100 /uL (1100-4500); Lymphocytes Percent Auto 19.2 % (25-40); Mean Corpuscular HGB Conc 33.9 % (30-36); Mean Corpuscular Hemoglobin 30.1 PG (26-34); Mean Corpuscular Volume 88.7 fL (80-100); Monocytes Absolute Auto 500 /uL (0-900); Monocytes Percent Auto 8.5 % (3-14); Neutrophils Absolute Auto 3900 /uL (1500-7000); Platelet Count 205 X10^3/uL (150-400); Red Blood Cell Count 3.84 X10^6/uL (4.5-5.9); Red Cell Distribution Width 13.3 % (11.6-14.8); White Blood Cell Count 5.9 X10^3/uL (4.5-11.0)
[2021-04-11 10:53] LABS: Albumin 3.9 g/dL (3.5-5.0); BUN Creatinine Ratio 25.2 (6-22); Blood Urea Nitrogen 33 mg/dL (9-20); Calcium 9.3 mg/dL (8.4-10.2); Carbon Dioxide 27 mmol/L (22-32); Chloride 102 mmol/L (98-107); Creatinine Urine Random 138.6 mg/dL; Estimated Glomerular Filt Rate 53.8 mL/min (>60); Glucose 248 mg/dL (80-110); HEMOLYSIS < 15 (0-50); Phosphorous 4.7 mg/dL (2.3-3.7); Sodium 134 mmol/L (137-145)
[2021-04-11 10:57] LABS: Potassium 5.5 mmol/L (3.4-5.1)
[2021-04-11 11:09] LABS: Vitamin D 25 Hydroxy (D3) 43.3 ng/mL (30.0-100.0)
[2021-04-11 11:23] LABS: Microalbumi Creatinin Ratio Ur 234.4 ug/mg CR (<30); Microalbumin Urine Random 32.5 mg/dL (0-1.6)
[2021-04-12 05:58] LABS: Parathyroid Hormone Int 57 pg/mL (15-65)
== END ==
PROVIDERS: PCP Family Medicine; Referring Provider Internal Medicine Nephrology; Visit Provider Internal Medicine Nephrology
DX: N18.30 Chronic kidney disease, stage 3 unspecified (principal)
CPT/HCPCS: 36415; 80069; 82043; 82306; 82570; 83970; 85025

== ENCOUNTER → 2021-06-01 13:17 | Outpatient (CLI) | payer MEDICARE, OTHER, SELFPAY ==
[2021-06-01 15:39] LABS: Albumin 3.9 g/dL (3.5-5.0); BUN Creatinine Ratio 29.3 (6-22); Blood Urea Nitrogen 39 mg/dL (9-20); Carbon Dioxide 26 mmol/L (22-32); Chloride 104 mmol/L (98-107); Estimated Glomerular Filt Rate 52.9 mL/min (>60); Glucose 105 mg/dL (80-110); HEMOLYSIS 30 (0-50); Phosphorous 4.4 mg/dL (2.3-3.7); Potassium 4.9 mmol/L (3.4-5.1); Sodium 136 mmol/L (137-145)
== END ==
PROVIDERS: PCP Internal Medicine; Referring Provider Internal Medicine Nephrology; Visit Provider Internal Medicine Nephrology
DX: N18.31 Chronic kidney disease, stage 3a (principal); E78.1 Pure hyperglyceridemia
CPT/HCPCS: 36415; 80069

== ENCOUNTER → 2021-06-15 07:48 | Outpatient (CLI) | payer MEDICARE, OTHER, SELFPAY ==
[2021-06-15 09:08] LABS: Triglycerides 297 mg/dL (35-150)
== END ==
PROVIDERS: PCP Internal Medicine; Referring Provider Internal Medicine Nephrology; Visit Provider Internal Medicine Nephrology
DX: E78.1 Pure hyperglyceridemia (principal); N18.31 Chronic kidney disease, stage 3a
CPT/HCPCS: 36415; 84478

== ENCOUNTER → 2021-07-17 11:14 | Outpatient (CLI) | payer MEDICARE, OTHER, SELFPAY ==
[2021-07-17 13:59] LABS: Hemoglobin A1C% w Est Avg Glu 7.4 % (4.0-6.0)
[2021-07-17 17:15] LABS: Creatinine Urine Random 75.6 mg/dL
[2021-07-17 17:35] LABS: Microalbumi Creatinin Ratio Ur 542.3 ug/mg CR (<30)
== END ==
PROVIDERS: PCP Internal Medicine; Referring Provider Internal Medicine; Visit Provider Internal Medicine
DX: E10.65 Type 1 diabetes mellitus with hyperglycemia (principal)
CPT/HCPCS: 36415; 82043; 82570; 83036

== ENCOUNTER → 2021-08-15 12:53 | Outpatient (CLI) | payer MEDICARE, OTHER, SELFPAY ==
--- NOTE | 2021-08-15 | DI.MRI.S_ITS ---
PROCEDURE: MR RUN OFF 3 STAGES ABD START INDICATIONS: right leg claudication and ischemia TECHNIQUE: Precontrast axial and coronal TruFISP acquired through the abdomen and pelvis. Multi-station dynamic coronal MRA using Care Bolus timing from the kidneys to the ankles during the administration of contrast, with 3-dimensional maximum intensity projection (MIP) reformats constructed. COMPARISON: None. FINDINGS: Image quality: Excellent. ABDOMEN: Aorta: Aorta is normal in caliber and is patent. Renal arteries: Both renal arteries are patent. Mesenteric arteries: The origin of the celiac trunk is patent. The SMA and its branches are patent. Extravascular soft tissues: Visualized solid organs are normal in size on limited pre-contrast images. Bowel loops are normal in caliber. No free fluid. No retroperitoneal or mesenteric adenopathy by size criteria. No ventral hernias. Bones: Marrow demonstrates normal overall signal. PELVIS AND BILATERAL LOWER EXTREMITIES: Right sided vessels: The right common iliac artery has a focal 80 percent stenosis 2 cm distal to the bifurcation. The remaining right common iliac artery, external iliac artery, superficial femoral artery, and popliteal artery are patent. The right anterior tibial artery is patent to the ankle. The tibioperoneal trunk has 2 foci of mild stenosis. The posterior tibial artery and peroneal artery are patent to the ankle. Left sided vessels: The left common iliac artery, external iliac artery, superficial femoral artery, and popliteal artery are patent. The left tibioperoneal trunk has a mild stenosis. The anterior tibial artery has a mild stenosis proximally but is then patent to the ankle. The left posterior tibial artery is patent to the ankle. IMPRESSION: 1. 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 This would likely benefit from angioplasty. Consider interventional radiology referral. 2. Mild bilateral infrapopliteal artery disease as above. Dictated by: Dixon Valdez M.D. on 08/15/2021 at 14:45 Approved by: Dixon Valdez M.D. on 08/15/2021 at 14:52
== END ==
PROVIDERS: PCP Internal Medicine; Referring Provider Internal Medicine; Visit Provider Internal Medicine
DX: I70.221 Atherosclerosis of native arteries of extremities with rest pain, right leg (principal); I70.202 Unspecified atherosclerosis of native arteries of extremities, left leg
CPT/HCPCS: C8902; C8912; C8918; A9579

== ENCOUNTER → 2021-10-23 14:14 | Outpatient (CLI) | payer MEDICARE, OTHER, SELFPAY ==
[2021-10-23 16:30] LABS: Add Manual Diff / Slide Review NO; Basophils Absolute Auto 100 /uL (0-100); Basophils Percent Auto 1.1 % (0-2); Eosinophils Absolute Auto 200 /uL (0-450); Hematocrit 33.1 % (41-53); Hemoglobin 11.3 g/dL (13.5-17.5); Lymphocytes Absolute Auto 2000 /uL (1100-4500); Lymphocytes Percent Auto 27.3 % (25-40); Mean Corpuscular Hemoglobin 30.6 PG (26-34); Monocytes Absolute Auto 700 /uL (0-900); Monocytes Percent Auto 9.1 % (3-14); Neutrophils Absolute Auto 4300 /uL (1500-7000); Neutrophils Percent Auto 59.5 % (50-75); Platelet Count 199 X10^3/uL (150-400); Red Blood Cell Count 3.68 X10^6/uL (4.5-5.9); Red Cell Distribution Width 13.4 % (11.6-14.8); White Blood Cell Count 7.3 X10^3/uL (4.5-11.0)
[2021-10-23 16:32] LABS: Prothrombin Time 11.6 SECONDS (10.1-12.7)
[2021-10-23 17:50] LABS: Albumin 3.9 g/dL (3.5-5.0); BUN Creatinine Ratio 27.1 (6-22); Blood Urea Nitrogen 35 mg/dL (9-20); Calcium 9.1 mg/dL (8.4-10.2); Carbon Dioxide 27 mmol/L (22-32); Chloride 105 mmol/L (98-107); Estimated Glomerular Filt Rate 54.6 mL/min (>60); Glucose 107 mg/dL (80-110); HEMOLYSIS < 15 (0-50); Potassium 4.6 mmol/L (3.4-5.1); Sodium 135 mmol/L (137-145)
== END ==
PROVIDERS: PCP Internal Medicine; Referring Provider Internal Medicine Cardiovascular Disease; Visit Provider Internal Medicine Cardiovascular Disease
DX: I25.10 Atherosclerotic heart disease of native coronary artery without angina pectoris (principal); I10 Essential (primary) hypertension; E78.5 Hyperlipidemia, unspecified; I49.3 Ventricular premature depolarization; I73.9 Peripheral vascular disease, unspecified
CPT/HCPCS: 36415; 80069; 85025; 85610

== ENCOUNTER → 2021-12-11 07:08 | Outpatient (CLI) | payer MEDICARE, OTHER, SELFPAY ==
[2021-12-11 09:52] LABS: Alanine Aminotransferase 23 IU/L (<50); Aspartate Aminotransferase 25 IU/L (17-59); Cholesterol 209 mg/dL (140-199); Creatine Kinase 77 U/L (55-170); HDL Cholesterol 26 mg/dL (40-60)
[2021-12-11 10:02] LABS: Triglycerides 677 mg/dL (35-150)
[2021-12-11 10:03] LABS: LDL Cholesterol Direct 38 mg/dL (<100)
== END ==
PROVIDERS: PCP Internal Medicine; Referring Provider Internal Medicine Cardiovascular Disease; Visit Provider Internal Medicine Cardiovascular Disease
DX: I10 Essential (primary) hypertension (principal); I25.10 Atherosclerotic heart disease of native coronary artery without angina pectoris; E78.5 Hyperlipidemia, unspecified
CPT/HCPCS: 36415; 80061; 82550; 83721; 84450; 84460